=== PATIENT | male | born 1955 | race Caucasian/White ===

== ENCOUNTER 2023-11-02 07:00 | Outpatient (CLI) | payer BC, OTHER ==
--- NOTE | 2023-11-02 15:00 | XRAY Report ---
PROCEDURE: Ankle 3+V LT INDICATIONS: LEFT ANKLE SPRAIN TECHNIQUE: 3 views of the ankle were acquired. COMPARISON: None. FINDINGS: Bones: Mildly displaced distal malleolus fracture. Mild scattered degenerative changes. Soft tissues: Plantar calcaneal enthesopathy. There is widening of the lateral mortise. Soft tissue s welling is present. IMPRESSION: Mildly displaced lateral malleolus fracture with widening of the lateral mortise. There is surroundin g soft tissue swelling. Mild degenerative changes. Reviewed by: Augusto Le MD on 11/02/2023 2:59 PM PDT Approved by: Augusto Le MD on 11/02/2023 2:59 PM PDT Station ID: [id number]
== END 2023-11-02 23:59 | disposition home or self-care (01) ==
LOC: DI.S 07:00
PROVIDERS: ATTEND Physician Assistant
DX: S82.62XA Displaced fracture of lateral malleolus of left fibula, initial encounter for closed fracture (principal)

== ENCOUNTER 2023-12-05 08:00 | Outpatient (CLI) | payer BC ==
--- NOTE | 2023-12-05 12:32 | XRAY Report ---
PROCEDURE: Ankle 3+V LT INDICATIONS: FRACTURE OF LEFT LOWER LEG TECHNIQUE: 2 views of the ankle were acquired. COMPARISON: 11/02/2023 FINDINGS: Bones: There is a mildly displaced, comminuted, intra-articular fracture of the distal fibula, with intra-articular involvement. There is mild widening of ankle mortise. Soft tissues: There is associated soft tissue swelling. IMPRESSION: Distal fibular fracture, with comminution and widening of the ankle mortise. The fracture appears mor e displaced on the current study than on the prior. Reviewed by: Bart Olmedo MD on 12/05/2023 11:31 AM [facility] Approved by: Bart Olmedo MD on 12/05/2023 11:31 AM AL[facility] Station ID: [id number]
== END 2023-12-05 23:59 | disposition home or self-care (01) ==
LOC: DI.S 08:00
PROVIDERS: ATTEND Physician Assistant Medical
DX: S82.892D Other fracture of left lower leg, subsequent encounter for closed fracture with routine healing (principal)